=== PATIENT | male | born 1980 | race Caucasian/White ===

== ENCOUNTER 2020-06-17 09:33 | Outpatient (NON) | payer BC, SELFPAY ==
[2020-06-17 23:28] LABS: SARS-CoV-2 RNA PCR Positive
== END 2020-06-17 09:34 ==
LOC: ANHCOVIDDT 09:34
PROVIDERS: PCP Family Medicine; Visit Provider Family Medicine
DX: U07.1 COVID-19 (principal); J02.9 Acute pharyngitis, unspecified; R09.89 Other specified symptoms and signs involving the circulatory and respiratory systems; R05 Cough; R50.9 Fever, unspecified
CPT/HCPCS: C9803; U0003

== ENCOUNTER 2023-05-13 08:28 | Outpatient (CLI) | payer BC, SELFPAY ==
--- NOTE | 2023-06-06 20:39 | WPDHOMESLEEP ---
Sleep Study - Home Unattended Date of Study: 05/13/23 Ordering Provider: Juan Beck MD Interpreting Provider: Lakisha Guevara, DO Home Sleep Study Type: Watch PAT Height: 1.93 m Weight: 151.953 kg Body Mass Index: 40.7 Neck Circumference (inches): 18 Sheldon: 7 Reason for Sleep Study Loud snoring, multiple nighttime awakenings Sleep History The patient is a 42-year-old male with hypertension that had a sleep study ordered by his primary care physician for evaluation of sleep apnea. The patient denies awakening from sleep short of breath. He denies awakening at night with heartburn, belching or cough. He constantly snores and it is occasionally loud enough that others complain. He frequently has trouble sleeping when he has a cold. He denies waking up gasping for air throughout the night. He denies having breathing problems at night observed by himself or others. He rarely sweats excessively at night. He denies having heart palpitations or irregular heartbeats during the night. He occasionally falls asleep during the day and occasionally falls asleep while driving. He denies sleep paralysis, cataplexy and hypnagogic / hypnopompic hallucinations. He denies having trouble at school or work due to sleepiness. He denies feeling afraid of going to sleep. He denies having nightmares. He rarely remembers his dreams. He rarely has thoughts racing through his mind. He occasionally feels sad, depressed and anxious. He occasionally has muscular tension. He rarely notices parts of his body jerk. He rarely kicks during the night. He occasionally has crawling and aching feelings in his legs but rarely has leg pain during the night. He frequently grinds his teeth during sleep but never awakens with morning jaw pain. He is occasionally bothered by pain during the day but never awakened by pain during the night. He occasionally wakes up feeling stiff in the morning. He rarely wakes up with sore or achy muscles. He rarely wakes up with pain in the neck, spine and other joints. He goes to bed at midnight on both weekdays and weekends. He can fall asleep relatively quickly. He wakes up 3-4 times throughout the night to reposition and is able to fall back asleep within seconds. He wakes up at 6:00 a.m. on weekdays and 7:00 a.m. on the weekends. He typically gets 5-1/2 hours of sleep per night. He does not stay in bed longer than 5 minutes after waking up in the morning. He currently lives with his and 3 children. He denies consuming any caffeinated beverages within 2 hours of bedtime. He denies engaging in physical exercise before bedtime. He will watch television and occasionally read before falling asleep. He will take naps in afternoon or the evening and they are refreshing. He consumes 6 cups of decaffeinated beverages throughout the day. He consumes alcoholic beverages 2 times per week. He denies tobacco and recreational drug use. [facility] Past Medical History Medical History COVID-19 Family history of alpha 1 antitrypsin deficiency Social History Social History Smoking status: Never smoker Alcohol intake: current Lack of Transportation: No Lack of Food: Never True Current Housing: I Have Housing Concerned About Future Housing: No Difficulty Paying Gas/Electric Bills: No Difficulty Paying for Meds: No Currently Unemployed: No Education: Bachelor's Degree Difficulty w/ Childcare or Family Care: No Medications Home Medications Medication Instructions Recorded Confirmed Type cetirizine 10 mg tablet (Zyrtec) 10 mg PO DAILY 04/20/19 08/17/22 History albuterol sulfate 90 mcg/actuation inhalation 04/22/23 History aerosol inhaler metoprolol succinate 100 mg See Rx Instructions .Route 04/24/23 Rx tablet,extended release 24 hr .COMPLEX #90 tabs fluticasone propiona
[2023-06-06 20:46] VITALS: BMI 40.7
== END 2023-05-14 08:00 | disposition home or self-care (01) ==
LOC: ANHCSM 08:30
PROVIDERS: PCP Family Medicine; Visit Provider Family Medicine
DX: G47.9 Sleep disorder, unspecified (principal); E66.9 Obesity, unspecified; G47.33 Obstructive sleep apnea (adult) (pediatric)
CPT/HCPCS: 95800

== ENCOUNTER 2024-12-07 09:41 | Outpatient (CLI) | payer BC, SELFPAY ==
--- NOTE | 2024-12-28 11:59 | WPDSLEEPSTUD ---
Sleep Study Date of Study: 12/07/24 Ordering Provider: TAY Eastman Interpreting Physician: Brianne Quigley MD Sleep Study Type: Split Polysomnogram Height: 1.93 m Weight: 154.221 kg Body Mass Index: 41.3 Neck Circumference (inches): 19.5 Falls: 10 Reason for Sleep Study Hypersomnolence, snoring, disturbed sleep * 05/13/2023, home sleep test showing AHI of 7.4 with desaturation down to 84%. This is consistent with mild obstructive sleep apnea. Auto PAP was recommended. Sleep History Jey Darby is a 44 year-old man with a prior home sleep test 05/13/2023 showing mild obstructive sleep apnea with desaturation 84%. The recommendation was for auto PAP. He stopped wearing it a few months ago due to insurance company saying that he did wear it enough. He would unknowingly take his mask off at night and not realize until the next morning. He wore nasal pillows and did well tolerating it. He rarely awakens at night feeling short of breath. He never awakens at night with heartburn, belching or coughing. He frequently snores and occasionally this is loud enough that others complain about it. He occasionally difficulty sleeping when he has a cold. He rarely wakes up gasping for breath at night. He occasionally has breathing problems at night observed by others. He rarely sweats excessively at night, rarely notices his heart pounding or beating irregularly at night. He occasionally falls asleep during the day, occasionally fall asleep involuntarily and occasionally falls asleep while driving. He does not have loss of muscle tone with strong emotion. He rarely has daytime difficulties due to excessive sleepiness. He never feels paralyzed on waking or falling asleep. He never has vivid dreamlike scenes upon awakening or falling asleep. He does not feel afraid to go to sleep. He does not have nightmares. He rarely has dream recall. He occasionally has racing thoughts. He occasionally feels sad, depressed or anxious. He frequently has muscular tension. He occasionally notices parts of his body jerking. He occasionally kicks at night and occasionally has crawling and aching feelings in his legs at night. He rarely has any kind of leg pain during the night. He rarely has morning jaw pain. He frequently grinds his teeth at night. He occasionally is bothered by pain during the day. He has never awakened by pain during the night. Occasionally wakes up feeling stiff in the morning. He rarely wakes up with sore achy muscles are pain in the neck and spine. Normal bedtime is midnight falling asleep quickly, waking between 3 and 4 times during the night just for half a minute, rolls over and quickly returns to sleep. His normal wake time is 5:45 a.m.. On ends, he still goes to bed at midnight, wake time is between 6:30 a.m. or 7:00 a.m.. He estimates getting 5 hours of sleep at night. He does not take naps in the afternoon or evening. He reports that a short nap lasting 10-15 minutes may be refreshing. Most of the time he indicates that he feels good on waking and he feels better in the morning compared to other times of day. Habits: Tobacco: Never smoker Caffeine: 2 cups of coffee per day Alcohol: none Recreational substance: none PMFSH Past Medical History Medical History HEATHER (obstructive sleep apnea) Family history of alpha 1 antitrypsin deficiency COVID-19 Social History Social History Smoking status: Never smoker Alcohol intake: current Lack of Transportation: No Lack of Food: Never True Current Housing: I Have Housing Concerned About Future Housing: No Difficulty Paying Gas/Electric Bills: No Difficulty Paying for Meds: No Currently Unemployed: No Education: Bachelor's Degree Difficulty w/ Childcare or Family Care: No Medications Home Medications ?Medication ?Instructions ?Recorded ?Confirmed ?Type cetirizine 10 mg tablet (Zyrtec) 10 mg PO DAILY 04/20/19 10/26/24 History albuterol sulfate 90 mcg/actuation inhalation 04/22/23 10/26/24 History aerosol inhaler fluticasone propionate 50 1 spray intranasal DAILY #16 grams 03/16/24 10/26/24 Rx mcg/actuation nasal spray,suspension (Flonase Allergy Relief) metoprolol succinate 100 mg See Rx Instructions .Route 07/11/25 Rx tablet,extended release 24 hr .COMPLEX #90 tabs Sleep Procedure A split night polysomnogram using the [employer] multi-channel system recorded the standard physiologic parameters including EEG, EOG, submentalis EMG, anterior tibialis EMG, EKG, body position, nasal and oral airflow using nasal pressure sensor and thermistor. Respiratory parameters of chest and abdominal movements were recorded with Respiratory Inductance Plethysmography belts. Oxygen saturation was recorded by pulse oximetry. Video monitoring was also performed. Sleep stages, periodic limb movements, and EEG arousals were scored in 30 second epochs according to the criteria of the AASM Scoring Manual. The Apnea-Hypopnea Index was calculated using [facility] guidelines for definition of hypopnea while scoring respiratory events. After the baseline portion the patient met criteria for a titration with an AHI of 23.8 (>4%) and 27.4 (>3%) and desaturation to 79%. He used a medium ResMed AirFit P30i nasal pillows and heated humidity, initial pressure was CPAP 5 titrated to CPAP 7 with a final pressure of CPAP 9. At CPAP 9 cm, patient spent 142.5 minutes in bed, 38 minutes awake, 82 minutes in non-REM and 22.5 minutes in REM. Sleep efficiency was 73.3%. The residual apnea-hypopnea index was 5.2 and the lowest saturation was 89%. REM occurred in the supine position. Events were worse in the supine position, on baseline his supine apnea-hypopnea index was 112.5 and the nonsupine AHI was 18.2. He still had a greater number of events in the supine position during the titration but these were minimized at the optimal pressure. Sleep Architecture During the diagnostic portion of the study, the total recording time was 176.2 minutes. The total sleep time was 133.5 minutes. Sleep latency was 11.2 minutes. REM latency was 88.5 minutes. Sleep Efficiency was 75.8%. The patient had 23 awakenings for an awakening index of 10.3. Wake after sleep onset time was 31.5 minutes. The patient spent 18.0 minutes, 13.5% of total sleep time in Stage N1. The patient spent 70.0 minutes, 52.4% in Stage N2. The patient spent 39.5 minutes, 29.6% in Stage N3. The patient spent 6.0 minutes, 4.5% in Stage REM sleep. At 01:21:35 AM the patient was placed on PAP treatment and was titrated at pressures ranging from CPAP 5 cm to 9 cm. During the treatment portion of the study, the total recording time was 278.5 minutes. The total sleep time was 189.0 minutes. Sleep latency was 11.0 minutes. REM latency was 50.5 minutes. Sleep Efficiency was 67.9%. Wake after Sleep Onset time was 78.0 minutes. The patient spent 24.0 minutes, 12.7% of total sleep time in Stage N1. The patient spent 104.5 minutes, 55.3% in Stage N2. The patient spent 3.0 minutes, 1.6% in Stage N3. The patient spent 57.5 minutes, 30.4% in Stage REM. Respiratory Analysis During the diagnostic portion of the study, the patient had 37 hypopneas, 9 obstructive apneas, 7 mixed apneas, and no central apneas for an overall Apnea Hypopnea Index of 23.8 events per hour. The REM Apnea Hypopnea Index was 40.0. The NREM Apnea Hypopnea Index was 23.1. The patient had a Central Apnea Hypopnea Index of 0. There were no Respiratory Effort Related Arousals. The Respiratory Disturbance Index is 26.1 events per hour. There was no evidence of Harman-Roth Respirations. On the baseline, the supine apnea-hypopnea index was 112.5 and the nonsupine AHI was 18.2. During the treatment portion of the study, the patient had 32 hypopneas, 4 obstructive apneas, no mixed apneas, and 2 central apneas for an overall Apnea Hypopnea Index of 12.1 events per hour. The REM Apnea Hypopnea Index was 0. The NREM Apnea Hypopnea Index was 17.3. The patient had a Central Apnea Hypopnea Index of 0.6. There were no Respiratory Effort Related Arousals. The Respiratory Disturbance Index is 12.1 events per hour. There was no evidence of Harman-Roth Respirations. During the titration, the supine apnea-hypopnea index was 21 and the nonsupine apnea-hypopnea index was 0.7. Arousals During the diagnostic portion of the study, there were a total of 76 arousals for an arousal index of 34.2. There were 22 respiratory arousals for an index of 9.9. There was 1 periodic limb movement arousal for an index of 0.4. There were 11 isolated limb movement arousals for an index of 4.9. There were 43 spontaneous arousals for an index of 19.3. During the treatment portion of the study, there were a total of 71 arousals for an index of 22.5. There were 22 respiratory arousals for an index of 7.0. There were 3 periodic limb movement arousals for an index of 1.0. There was 1 isolated limb movement arousal for an index of 0.3. There were 45 spontaneous arousals for an index of 14.3. Periodic Limb Movements During the diagnostic portion of the study, the patient had 12 isolated limb movements with an index of 5.4. The patient had 5 periodic limb movements with an index of 2.2. The patient had a total of 17 limb movements with a total limb movement index of 7.6. During the treatment portion of the study, the patient had 12 isolated limb movements with an index of 3.8. The patient had 31 periodic limb movements with an index of 9.8. The patient had a total of 43 limb movements with a total limb movement index of 13.7. Oximetry Data During the diagnostic portion of the study, the patient had an average oxygen saturation of 93% in wake with a minimum oxygen saturation of 78% and a maximum oxygen saturation of 99%. The patient had an average oxygen saturation of 93.3% in sleep with a minimum oxygen saturation of 79% and a maximum oxygen saturation of 98%. The patient had 59 oxygen desaturations resulting in an Oxygen Desaturation Index of 26.5. The patient spent 4.5 minutes, 2.6% of total sleep time with an oxygen saturation less than 88%. During the treatment portion of the study, the patient had an average oxygen saturation of 94.4% in wake with a minimum oxygen saturation of 86% and a maximum oxygen saturation of 98%. The patient had an average oxygen saturation of 93.6% in sleep with a minimum oxygen saturation of 87% and a maximum oxygen saturation of 98%. The patient had 43 oxygen desaturations resulting in an Oxygen Desaturation Index of 13.7. The patient spent 2.9 minutes, 1% of total sleep time with an oxygen saturation less than 88%. Snoring Profile Snoring was mild during the baseline, and this was eliminated during the titration. Cardiac Profile During the diagnostic portion of the study, the EKG showed normal sinus rhythm. The average pulse rate was 72.3 bpm, minimum pulse rate was 56 bpm, maximum pulse rate was 103 bpm. No arrhythmias noted. During the treatment portion of the study, the EKG showed normal sinus rhythm. The average pulse rate was 69.6 bpm, minimum pulse rate was 60 bpm, maximum pulse rate was 96 bpm. No arrhythmias noted. EEG Profile Unremarkable, no evidence of seizures. Assessment and Plan Assessment and Plan (1) HEATHER (obstructive sleep apnea): Code(s): G47.33 - Obstructive sleep apnea (adult) (pediatric) Status: Acute Assessment and Plan: This split night sleep study on December 07, 2024 shows overall, moderate obstructive sleep apnea with an apnea-hypopnea index 23.8 and desaturation to 79% which was successfully treated using a medium ResMed AirFit P 30 I nasal pillow and a CPAP pressure of 9 cm. Events were worse in the supine position, on baseline his supine apnea-hypopnea index was 112.5 and the nonsupine AHI was 18.2. He still had a greater number of events in the supine position during the titration but these were minimized at the optimal pressure. At CPAP 9 cm, patient spent 142.5 minutes in bed, 38 minutes awake, 82 minutes in non-REM and 22.5 minutes in REM. Sleep efficiency was 73.3%. The residual apnea-hypopnea index was 5.2 and the lowest saturation was 89%. REM occurred in the supine position. Events were worse in the supine position, on baseline his supine apnea-hypopnea index was 112.5 and the nonsupine AHI was 18.2. He still had a greater number of events in the supine position during the titration but these were minimized at the optimal pressure. The patient should be prescribed this ResMed equipment as well as tubing, filters and reservoir. This should be used with all episodes of sleep. Compliance should be reviewed within 31-90 days of starting therapy for usage greater than 4 hours per night greater than 70% of the nights. The patient should be asked about symptoms such as excessive daytime sleepiness, quality of sleep, decreased nocturia, increased mental functioning such as memory, mood, and concentration. BMI is 41.4. Weight management is advised. Clinical data suggests that weight loss of 10% can reduce the severity of respiratory events and snoring and improve AHI by as much as 25%. The patient indicates that he occasionally has uncomfortable crawling feelings in his legs and occasionally kicks at night. I recommend asking the patient how often he has problems with uncomfortable feelings in his legs before sleep. If this is 2 or more nights a week, I would evaluate for restless legs syndrome. He did not have excessive kicking during the study. I also recommend sleep hygiene measures for this patient. He is not allowing himself 7 - 8 hours at night to sleep. He has sleep restricting intentionally, allowing himself somewhere around 5 or 5-1/2 hours at night to sleep which is not sufficient. This is concerning because the patient indicates that he occasionally fall asleep while driving. (2) Bruxism: Code(s): F45.8 - Other somatoform disorders Status: Acute Assessment and Plan: The patient indicates on a sleep survey that he frequently grinds his teeth at night. This was not noted during the sleep study. For some patients, treating sleep apnea with PAP therapy can reduce bruxism. Patient needs to consult with his dentist about whether not his bruxism is significant with wear and tear on his teeth. Data The data obtained during this sleep study is adequate for interpretation. Certification This sleep study has been reviewed by a board certified sleep medicine physician.
[2024-12-28 12:00] VITALS: BMI 41.3
== END 2024-12-08 06:35 | disposition home or self-care (01) ==
LOC: ANHCSM 09:41
PROVIDERS: PCP Family Medicine; Visit Provider Nurse Practitioner Family
DX: G47.33 Obstructive sleep apnea (adult) (pediatric) (principal)
CPT/HCPCS: 95811